=== PATIENT | male | born 1940 | race Caucasian/White ===

== ENCOUNTER → 2016-12-25 | Outpatient (CLI) | payer MEDICARE, OTHER | LOC: OD 09:19 | PROVIDERS: ATTEND Urology | DX: N40.0 Benign prostatic hyperplasia without lower urinary tract symptoms (principal) | CPT/HCPCS: 36415; 84153 ==

== ENCOUNTER → 2017-10-15 | Outpatient (CLI) | payer MEDICARE, OTHER ==
[2017-10-15 10:55] LABS: ARTERIAL BLOOD BASE EXCESS -4.9 mmol/L; ARTERIAL BLOOD H2CO3 1.23 mmol/L (1.05-1.35); ARTERIAL BLOOD HCO3 20.8 mmol/L (20-26); ARTERIAL BLOOD O2 SATURATION 94.6 % (94-98); ARTERIAL BLOOD PH 7.32 (7.35-7.45); ARTERIAL BLOOD PO2 77.6 mmHg (80-100); ARTERIAL BLOOD TOTAL CO2 22.1 mmol/L (23-27)
[2017-10-15 11:07] LABS: ARTERIAL BLOOD FIO2 ROOM AIR
== END ==
LOC: OD 10:02
PROVIDERS: ATTEND Student in an Organized Health Care Education/Training Program
DX: E11.9 Type 2 diabetes mellitus without complications (principal); R63.4 Abnormal weight loss; Z85.038 Personal history of other malignant neoplasm of large intestine; Z85.118 Personal history of other malignant neoplasm of bronchus and lung
CPT/HCPCS: 36600; 82803

== ENCOUNTER → 2017-11-23 | Outpatient (CLI) | payer MEDICARE, OTHER ==
--- NOTE | 2017-11-25 10:44 | RADIOLOGY REPORT (SQ) ---
EXAM DESCRIPTION: PET CT SKULL/THIGH COMPLETED DATE/TIME: 11/23/2017 8:24 pm REASON FOR STUDY: COLON CANCER C18.7 MALIGNANT NEOPLASM OF SIGMOID COLON COMPARISON: None. RADIONUCLIDE AND DOSE: 10.23 mCi F18 FDG The route of agent administration: Intravenous FASTING BLOOD SUGAR: 81 mg/dl CONTRAST TYPE AND DOSE: No CT contrast given. TECHNIQUE: Blood glucose level was verified. Above dose of FDG was injected intravenously. 2-D seg mented attenuation correction images were obtained from the base of the skull to the midthighs. Nonc ontrast CT images were obtained for attenuation correction and fusion with emission images. CT image s were performed without oral or intravenous contrast and are not sensitive for parenchymal lesions. A series of overlapping emission PET images were obtained. Images reviewed and manipulated at [facility] work station by the radiologist. Images stored on PACS. LIMITATIONS: None. FINDINGS: HEAD AND NECK: No areas of abnormal metabolic activity in the soft tissues of the head and neck. CHEST: No areas of abnormal metabolic activity in the chest. ABDOMEN AND PELVIS: No areas of abnormal metabolic activity in the abdomen or pelvis. Expected physi ologic activity is present in the genitourinary system and bowel. PROXIMAL LOWER EXTREMITIES: No areas of abnormal metabolic activity in the soft tissues of the lower extremities. BONES: No abnormal metabolic activity in the visualized skeleton. ADDITIONAL CT FINDINGS: Cardiomegaly. Right hepatic resection. Anastomosis sigmoid colon. OTHER: No other significant findings. IMPRESSION: No evidence of metastatic disease. TECHNICAL DOCUMENTATION: JOB ID: [id number] [employer]- All Rights Reserved Reading location - IP/workstation name: [email or web address]
== END ==
LOC: RAD 16:00
PROVIDERS: ATTEND Internal Medicine
DX: C18.9 Malignant neoplasm of colon, unspecified (principal)
CPT/HCPCS: 78815; A9552

== ENCOUNTER 2020-05-12 08:45 | Emergency (ER) | payer OTHER, MEDICARE ==
[2020-05-12 10:08] LABS: ABSOLUTE EOSINOPHILS # (AUTO) 0.1 10^3/uL (0.0-0.6); ABSOLUTE LYMPHOCYTES (AUTO) 1.7 10^3/uL (0.5-4.7); ABSOLUTE MONOCYTES (AUTO) 0.6 10^3/uL (0.1-1.4); ABSOLUTE NEUT (AUTO) 6.5 10^3/uL (1.7-8.2); BASOPHILS % (AUTO) 0.3 % (0-2); EOSINOPHILS % (AUTO) 0.7 % (0-6); HEMATOCRIT 41.3 % (37.9-51.0); HEMOGLOBIN 13.8 g/dL (13.5-17.0); LYMPHOCYTES % (AUTO) 18.8 % (13-45); MEAN CORPUSCULAR HEMOGLOBIN 31.5 pg (27.0-33.4); MEAN CORPUSCULAR HGB CONC 33.5 g/dL (32.0-36.0); MEAN CORPUSCULAR VOLUME 94 fl (80-97); MONOCYTES % (AUTO) 6.7 % (3-13); PLATELET COUNT 160 10^3/uL (150-450); RED BLOOD COUNT 4.39 10^6/uL (4.35-5.55); RED CELL DISTRIBUTION WIDTH 14.5 % (11.5-14.0); SEGMENTED NEUTROPHILS % (AUTO) 73.5 % (42-78); TOTAL CELLS COUNTED % (AUTO) 100 %; WHITE BLOOD COUNT 8.9 10^3/uL (4.0-10.5)
[2020-05-12 10:28] LABS: ALBUMIN 3.9 g/dL (3.5-5.0); ALKALINE PHOSPHATASE 88 U/L (38-126); ANION GAP 9 (5-19); ASPARTATE AMINO TRANSFERASE 19 U/L (17-59); BILIRUBIN,DIRECT 0.3 mg/dL (0.0-0.4); BILIRUBIN,TOTAL 0.4 mg/dL (0.2-1.3); BLOOD UREA NITROGEN 18 mg/dL (7-20); CALCIUM 8.8 mg/dL (8.4-10.2); CARBON DIOXIDE 18 mmol/L (22-30); CHLORIDE 115 mmol/L (98-107); CREATINE KINASE 48 U/L (55-170); GLUCOSE 126 mg/dL (75-110); POTASSIUM 4.5 mmol/L (3.6-5.0); TOTAL PROTEIN 6.7 g/dL (6.3-8.2)
[2020-05-12 10:39] LABS: CREATINE KINASE MB 1.69 ng/mL (<4.55)
[2020-05-12] MEDS ORDERED: HYDROMORPHONE HCL INJ/PF 2 MG/ML AMPULE IV ONE (10:40)
[2020-05-12 10:44] LABS: TROPONIN I < 0.012 ng/mL
--- NOTE | 2020-05-12 10:44 | ER Document Report ---
ED General - General Chief Complaint: Arm Pain Stated Complaint: ARM PAIN Time Seen by Provider: 05/12/20 10:09 Primary Care Provider: KEVIN ATKINSON MD [ACTIVE STAFF] - Follow up as needed Mode of Arrival: Ambulatory Information source: Patient Notes: 79-year-old man presenting to the emergency department with a complaint of right arm pain. He states he hurts from his shoulder down to his hand. He has a history of arthritis and diabetes mellitus, hypertension, CAD. During the night he took 3 nitroglycerin and said he has some relief of the pain in his arm. Because of that finding he came concerned that the pain might be related to his heart. It does hurt to move the arm and also it is painful to touch. Apparently has had a GI bleed related to NSAID use, severe constipation related to opiate use. Has been using Tylenol arthritis for pain. He is here to exclude CAD etiology for his right arm pain. TRAVEL OUTSIDE OF THE [place] IN LAST 30 DAYS: No - Related Data Allergies/Adverse Reactions: aspirin [Aspirin] Allergy (Unknown, Verified 05/12/20 09:26) torsemide Adverse Reaction (Verified 05/12/20 09:26) DEHYDRATION Home Medications: heart medicine, nitro, cholesterol medicine, flomax Past Medical History - Social History Smoking Status: Never Smoker Chew tobacco use (# tins/day): No Frequency of alcohol use: None Drug Abuse: None Family History: Reviewed & Not Pertinent Patient has homicidal ideation: No - Past Medical History Cardiac Medical History: Reports: Hx Congestive Heart Failure, Hx Heart Attack, Hx Hypercholesterolemia, Hx Hypertension Pulmonary Medical History: Reports: Hx COPD, Hx Sleep Apnea - CPAP Denies: Hx Tuberculosis Endocrine Medical History: Reports: Hx Diabetes Mellitus Type 2 Malignancy Medical History: Reports Hx Colorectal Cancer, Reports Hx Liver Cancer Musculoskeletal Medical History: Reports Hx Arthritis Psychiatric Medical History: Denies: Hx Depression Infectious Medical History: Reports: Hx MRSA Past Surgical History: Reports: Hx Abdominal Surgery - 1/2 liver removed, Hx Appendectomy, Hx Bowel Surgery - 12 in of colon removed, Hx Cardiac Catheterization, Hx Cholecystectomy, Hx Tonsillectomy - Immunizations Immunizations up to date: Yes Hx Diphtheria, Pertussis, Tetanus Vaccination: Yes Review of Systems - Review of Systems Notes: Constitutional: Negative for fever. HENT: Negative for sore throat. Eyes: Negative for visual changes. Cardiovascular: Negative for chest pain. Respiratory: Negative for shortness of breath. Gastrointestinal: Negative for abdominal pain, vomiting or diarrhea. Genitourinary: Negative for dysuria. Musculoskeletal: + Right arm pain Skin: Negative for rash. Neurological: Negative for headaches, weakness or numbness. 10 point ROS negative except as marked above and in HPI. Physical Exam - Vital signs Vitals: Temp Pulse Resp BP Pulse Ox 97.6 F 55 L 20 121/76 99 05/12/20 09:00 05/12/20 09:00 05/12/20 09:00 05/12/20 09:00 05/12/20 09:00 - Notes Notes: PHYSICAL EXAMINATION: Physical Exam: General: Well-nourished well-developed 79-year-old man no distress secondary to right arm pain and back pain. HEENT: NC/AT, pupils equal round and reactive to light, MM moist,nares clear, oropharynx clear, airway patent Neck: supple, no adenopathy, no masses. Good range of motion Lungs: clear, no wheezing, no rales no rhonchi CVS: Regular rate and rhythm no murmur gallop or rub Abdomen: Soft, active, nontender, no masses, no hepatosplenomegaly Ext: Left side right arm with tenderness to touch in the right shoulder, biceps and forearm. Decreased range of motion secondary to tenderness. Neuro: Alert and responsive, moving all 4 extremities on command, cranial nerves intact, no focal findings Skin: Intact no open lesions, no rash Course - Re-evaluation Re-evalutation: 05/12/20 12:29 This is a 79-year-old man who presents with history of arthritis and flareup of pain involving the right shoulder and lower back. He he has been using Tylenol for pain. Last night used nitroglycerin and felt some improvement in the right arm pain so has presented here today for further evaluation and treatment. 05/12/20 13:20 Evaluation in the emergency department is negative for cause of an acute coronary event. I explained this to the patient and his they appear to be satisfied. Because of his numerous medical problems Tylenol is the better choice of pain control. I have explained this to both he and the is well. - Vital Signs Vital signs: Temp Pulse Resp BP Pulse Ox 97.6 F 55 L 20 121/76 100 05/12/20 09:00 05/12/20 09:00 05/12/20 09:00 05/12/20 09:00 05/12/20 09:34 - Laboratory Result Diagrams: 05/12/20 09:45 05/12/20 09:45 Laboratory results interpreted by me: 05/12/20 05/12/20 09:45 09:45 RDW 14.5 H Chloride 115 H Carbon Dioxide 18 L Glucose 126 H Creatine Kinase 48 L - EKG Interpretation by Me Rate: Normal - EKG interpreted by Dr. Olvera: Normal sinus rhythm, rate 55, MA interval 192 ms, QT interval 416, left axis deviation, right bundle branch block, left anterior fascicular block, no acute ST or T wave abnormalities, no ischemic findings, when compared to EKG dated 11/2019, sinus tachycardia and trigeminy are no longer present. Discharge - Discharge Clinical Impression: Right upper limb pain, Arthritis Diabetes mellitus type 1 Qualifiers: Diabetes mellitus complication status: with other specified complication Qualified Code(s): E10.69 - Type 1 diabetes mellitus with other specified complication CAD (coronary artery disease) Qualifiers: Coronary Disease-Associated Artery/Lesion type: unspecified vessel or lesion type [place] vs. transplanted heart: [place] heart Associated angina: without angina Qualified Code(s): I25.10 - Atherosclerotic heart disease of [place] coronary artery without angina pectoris Condition: Good Disposition: HOME, SELF-CARE Instructions: Arthritis (OM) Additional Instructions: You were seen in the emergency department with pain in your right arm and lower back likely related to your arthritis. I suggest that we use Tylenol every 4-6 hours for pain control. Given your other medical conditions and inability to tolerate pain medications follow-up with the pain clinic is recommended for long-term pain management. HOME CARE INSTRUCTIONS & INFORMATION: Thank you for choosing us for your medical needs. We hope you're satisfied with the care you received. After you leave, you must properly care for your problem and, at the same time, observe its progress. Any condition can change. Some illnesses can change rapidly over hours or days. If your condition worsens, return to the Emergency Department or see your physician promptly. ABOUT YOUR X-RAYS AND EKG'S: If you had an EKG or X-rays taken, they have been read by the Emergency Physician. The X-rays and EKG's will also be read by a Radiologist or [employer] within 24 hours. If discrepancies are noted, you will be notified by telephone. Please be certain the ED has a correct telephone number & address where you can be reached. Also, realize that some fractures or abnormalities do not show up on initial X-rays. If your symptoms continue, see your physician. ABOUT YOUR LABORATORY TEST: If you had laboratory tests, the results have been reviewed by the Emergency Physician. Some test results (for example cultures) may not be available for several days. You will be contacted if any test result shows you need additional treatment. Please be certain the ED has a correct telephone number and address where you can be reached. ABOUT YOUR MEDICATIONS: You will receive instructions on how to take your medicine on the prescription label you receive. Additional information may be provided by the Pharmacy. If you have questions afterwards, call the ED for clarification or further instructions. Some prescribed medications may cause drowsiness. Do not perform tasks such as driving a car or operating machinery without consulting your Pharmacist. If you feel you need a refill of pain medication, your condition will need re-evaluation. Please do not call for a refill of any medication. ABOUT YOUR SIGNATURE: Signature of this document acknowledges to followin. Understanding that you received emergency treatment and that you may be released before al medical problems are known or treated. Please be certain the ED has a correct phone number & address where you can be reached. 2. Acknowledgement that you will arrange for follow-up care as recommended. 3. Authorization for the Emergency Physician to provide information to your follow-up Physician in order to maximize your care. AT ANY TIME, IF YOUR SYMPTOMS CHANGE SIGNIFICANTLY OR WORSEN OR YOU DEVELOP NEW SYMPTOMS, RETURN TO THE EMERGENCY DEPARTMENT IMMEDIATELY FOR RE-EVALUATION. OUR GOAL IS TO PROVIDE EXCELLENT MEDICAL CARE! WE HOPE THAT WE HAVE MET YOUR EXPECTATIONS DURING YOUR EMERGENCY DEPARTMENT VISIT AND THAT YOU FEEL YOU HAVE RECEIVED EXCELLENT CARE! Referrals: KEVIN ATKINSON MD [ACTIVE STAFF] - Follow up as needed
[2020-05-12 13:34] VITALS: BP 139/68
--- NOTE | 2020-05-12 15:57 | EKG REPORT ---
SEVERITY:- ABNORMAL ECG - SINUS BRADYCARDIA RBBB AND LAFB : Confirmed by: Liu Raymundo MD 12-May-2020 15:57:05
== END 2020-05-12 13:46 | disposition home or self-care (01) ==
LOC: ER 08:45
DX: M79.601 Pain in right arm (principal); M19.09 Primary osteoarthritis, other specified site; E10.69 Type 1 diabetes mellitus with other specified complication; I25.10 Atherosclerotic heart disease of native coronary artery without angina pectoris; I11.0 Hypertensive heart disease with heart failure; I50.9 Heart failure, unspecified; I25.2 Old myocardial infarction; Z88.6 Allergy status to analgesic agent
CPT/HCPCS: 93005; 99284; 96374; 36415; 82553; 82550; 85025; 80053; 84484; 93010; J1170